=== PATIENT | female | born 1985 | race Caucasian/White ===

== ENCOUNTER 2017-04-29 20:09 | Emergency (ER) | payer OTHER ==
[2017-04-29 21:31] LABS: BILIRUBIN NEGATIVE (NEGATIVE); BLOOD NEGATIVE Ery/uL (NEGATIVE); CLARITY CLEAR (CLEAR); COLOR YELLOW (YELLOW); GLUCOSE (U) NORMAL (NORMAL); KETONE (U) NEGATIVE (NEGATIVE); LEUKOCYTES NEGATIVE Leu/uL (NEGATIVE); NITRITE NEGATIVE (NEGATIVE); PROTEIN NEGATIVE (NEGATIVE); UROBILINOGEN 0.2 mg/dL (0.2-1.0); pH 7.5 (5.0-9.0)
[2017-04-29 21:39] LABS: BASOPHIL 0.3 % (0-2); EOSINOPHIL 1.3 % (0-5); HGB 12.7 g/dl (12.5-16.0); LYMPHOCYTE 33.9 % (15-48); MCH 28.7 pg (25.0-31.0); MCHC 33.4 g/dL (32.0-36.0); MONOCYTE 5.6 % (0-12); MPV 12.3 fL (6.0-9.5); NEUTROPHIL 58.9 % (41-80); PLT 250 K/uL (150-400); RBC 4.42 M/uL (4.20-5.40); RDW 13.7 % (11.5-14.0); WBC 12.4 K/uL (4.0-10.5)
[2017-04-29 21:55] LABS: ALBUMIN 3.7 g/dL (3.5-5.0); BILIRUBIN - TOTAL 0.2 mg/dL (0.1-1.0); CREATININE 0.9 mg/dL (0.5-1.0); GLOBULIN (CALCULATION) 3.3 g/dL (2.2-4.2); POTASSIUM 4.3 mmol/L (3.5-5.1)
== END 2017-04-29 22:58 | disposition home or self-care (01) ==
LOC: FER 20:09
PROVIDERS: Emergency Medicine Emergency Medical Services
DX: R10.84 Generalized abdominal pain (principal); Z87.42 Personal history of other diseases of the female genital tract; Z88.0 Allergy status to penicillin; Z90.710 Acquired absence of both cervix and uterus; Z90.49 Acquired absence of other specified parts of digestive tract
CPT/HCPCS: 36415; 74022; 80053; 81003; 85025; 99284